=== PATIENT | male | born 1950 | race Caucasian/White ===

== ENCOUNTER → 2018-01-19 | Day surgery (SDC) | payer MEDICARE ==
[~2018-01-19] MED LIST: 0.9 % SODIUM CHLORIDE 10 ML DISP.SYRIN. IV; BENZOCAINE ONE 20% MUCOSAL SPRAY.; BENZOCAINE ONE 20% MUCOSAL SPRAY. MM; IV RINGERS,LACTATED 1000ML 1,000 ML IV; LIDOCAINE 1% PF 2 ML VIAL. ID; LIDOCAINE 2% PF Vial for OR 5 ML VIAL.; LIDOCAINE 2% TOPICAL JELLY 5GM TUBE. TP; LIDOCAINE 2% VISCOUS 15 ML SOLUTION.; LIDOCAINE 2% VISCOUS 15 ML SOLUTION. SWSW; MORPHINE SULFATE 2 MG/ML DISP.SYRIN. IV; ONDANSETRON PF 4 MG/2 ML VIAL. IV; PROCHLORPERAZINE 10 MG/2 ML VIAL. IV; PROPOFOL 20 ML IV; fentaNYL PF VIAL 100 MCG/2 ML VIAL IV
[2018-01-19 12:49] LABS: INR 2.4 (0.8-1.1); PROTHROMBIN TIME PATIENT 24.8 SEC (11.7-14.0)
[2018-01-19 13:00] LABS: ANION GAP 7 (6-14); BLOOD UREA NITROGEN 15 mg/dL (8-26); CALCIUM 8.9 mg/dL (8.5-10.1); CARBON DIOXIDE 27 mmol/L (21-32); CHLORIDE 106 mmol/L (98-107); GLUCOSE 113 mg/dL (70-99); MAGNESIUM 1.9 mg/dL (1.8-2.4); SODIUM 140 mmol/L (136-145)
== END | disposition home or self-care (01) ==
LOC: SURG 11:30
DX: I08.1 Rheumatic disorders of both mitral and tricuspid valves (principal); I37.1 Nonrheumatic pulmonary valve insufficiency; I11.0 Hypertensive heart disease with heart failure; I50.9 Heart failure, unspecified; I25.10 Atherosclerotic heart disease of native coronary artery without angina pectoris; J44.9 Chronic obstructive pulmonary disease, unspecified; K21.9 Gastro-esophageal reflux disease without esophagitis; F41.9 Anxiety disorder, unspecified; F17.200 Nicotine dependence, unspecified, uncomplicated; E03.9 Hypothyroidism, unspecified; Z86.69 Personal history of other diseases of the nervous system and sense organs; Z87.39 Personal history of other diseases of the musculoskeletal system and connective tissue
CPT/HCPCS: 36415; 80048; 83735; 85610; 92960; 93005; 93312; 93325; J2704

== ENCOUNTER 2018-01-21 09:34 | Inpatient (IN) | payer MEDICARE ==
[2018-01-21] MEDS: ALBUTEROL SULFATE 2.5 MG/3 ML NEBU. NEB (10:00)
[2018-01-21] MEDS: IPRATROPIUM BROMIDE 0.5 MG/2.5 ML NEBU. NEB (10:00)
[2018-01-21] MEDS: methylPREDNISolone SOD SUCC PF 125 MG/2 ML VIAL. IV (10:11)
[2018-01-21 10:12] LABS: ADD MAN DIFF? NO
[2018-01-21 10:21] LABS: BASO # 0.1 x10^3/uL (0.0-0.2); BASO % 1 % (0-3); EOS # 0.1 x10^3/uL (0.0-0.7); EOS % 1 % (0-3); HEMATOCRIT 36.2 % (39.0-53.0); LYMPH # 1.7 x10^3/uL (1.0-4.8); LYMPH % 15 % (24-48); MEAN CORPUSCULAR HEMOGLOBIN 30 pg (25-35); MEAN CORPUSCULAR HGB CONC 33 g/dL (31-37); MEAN CORPUSCULAR VOLUME 90 fL (79-100); MONO # 0.8 x10^3/uL (0.0-1.1); MONO % 7 % (0-9); NEUT % 77 % (31-73); PLATELET COUNT 208 x10^3/uL (140-400); RED BLOOD COUNT 4.03 x10^6/uL (4.30-5.70); RED CELL DISTRIBUTION WIDTH 15.8 % (11.5-14.5); WHITE BLOOD COUNT 11.6 x10^3/uL (4.0-11.0)
[2018-01-21 10:29] LABS: ANION GAP 11 (6-14); BLOOD UREA NITROGEN 15 mg/dL (8-26); BUN/CREATININE RATIO 13 (6-20); CALCIUM 9.3 mg/dL (8.5-10.1); CARBON DIOXIDE 25 mmol/L (21-32); CHLORIDE 103 mmol/L (98-107); CREATININE 1.2 mg/dL (0.7-1.3); GFR 60.8; GLUCOSE 138 mg/dL (70-99); SODIUM 139 mmol/L (136-145)
[2018-01-21 10:34] LABS: ALBUMIN 3.8 g/dL (3.4-5.0); ALBUMIN/GLOBULIN RATIO 1.1 (1.0-1.7); ALK PHOS 147 U/L (46-116); ALT (SGPT) 42 U/L (16-63); AST (SGOT) 24 U/L (15-37); TOTAL BILIRUBIN 0.9 mg/dL (0.2-1.0); TOTAL PROTEIN 7.2 g/dL (6.4-8.2)
[2018-01-21 10:35] LABS: INFLUENZA A PATIENT NEGATIVE (NEGATIVE); INFLUENZA B PATIENT NEGATIVE (NEGATIVE); OBC FLU VALID
[2018-01-21 10:38] LABS: TROPONINI < 0.017 ng/mL (0.000-0.055)
[2018-01-21 10:40] LABS: NT-PRO BNP 701 pg/mL (0-124)
[2018-01-21 11:23] LABS: INR 2.7 (0.8-1.1); PROTHROMBIN TIME PATIENT 26.7 SEC (11.7-14.0)
[2018-01-21] MEDS: FUROSEMIDE 40 MG/4 ML VIAL. IVP (11:23)
[2018-01-21] MEDS ORDERED: ONDANSETRON PF 4 MG/2 ML VIAL. IV (11:45)
[2018-01-21] MEDS: IPRATRPIUM/ALBUTEROL 0.5/2.5MG 3 ML NEBU. NEB ×3 (12:15→19:46)
[2018-01-21] MEDS: FUROSEMIDE 20 MG/2 ML VIAL. IVP (13:30)
[2018-01-21] MEDS ORDERED: NITROGLYCERIN SUBLINGUAL 0.4 MG BOTTLE OF 25. SL (17:00)
[2018-01-21] MEDS ORDERED: clonazePAM 1 MG TABLET PO (17:00)
[2018-01-21] MEDS ORDERED: NON FORMULARY ITEM (Ipratropium/Albuterol Sulfate (Combivent Respimat Inhal) 2 INH) IH (17:00)
[2018-01-21] MEDS ORDERED: METHOCARBAMOL 750 MG TABLET PO (17:00)
[2018-01-21] MEDS: WARFARIN 2 MG TABLET. PO (17:20)
[2018-01-21] MEDS: predniSONE 20 MG TABLET PO (17:21)
[2018-01-21 18:24] LABS: TROPONINI < 0.017 ng/mL (0.000-0.055)
[2018-01-21] MEDS: BUDESONIDE 0.5 MG/2 ML NEBU. NEB (19:46)
[2018-01-21] MEDS ORDERED: BUDESONIDE 0.5 MG/2 ML NEBU. NEB (20:00)
[2018-01-21] MEDS: DOXYCYCLINE HYCLATE 100 MG TABLET PO (20:56)
[2018-01-21] MEDS: ATORVASTATIN CALCIUM 40 MG TABLET. PO (20:57)
[2018-01-21] MEDS ORDERED: NON FORMULARY ITEM (Budesonide/Formoterol Fumarate (Symbicort 160-4.5 Mcg Inhaler) 2 PUFF) IH (21:00)
[2018-01-22] MEDS: ACETAMINOPHEN 325 MG TABLET. PO ×2 (03:37→17:11)
[2018-01-22 05:43] LABS: BASO % 0 % (0-3); EOS % 0 % (0-3); HEMATOCRIT 35.9 % (39.0-53.0); HEMOGLOBIN 11.9 g/dL (13.0-17.5); LYMPH % 9 % (24-48); MEAN CORPUSCULAR HEMOGLOBIN 30 pg (25-35); MEAN CORPUSCULAR HGB CONC 33 g/dL (31-37); MEAN CORPUSCULAR VOLUME 90 fL (79-100); MONO # 0.5 x10^3/uL (0.0-1.1); MONO % 4 % (0-9); NEUT # 9.9 x10^3uL (1.8-7.7); NEUT % 87 % (31-73); PLATELET COUNT 220 x10^3/uL (140-400); RED BLOOD COUNT 3.99 x10^6/uL (4.30-5.70); RED CELL DISTRIBUTION WIDTH 16.1 % (11.5-14.5); WHITE BLOOD COUNT 11.3 x10^3/uL (4.0-11.0)
[2018-01-22 05:57] LABS: ADD MAN DIFF? YES
[2018-01-22] MEDS: LEVOTHYROXINE 75 MCG TABLET PO (06:10)
[2018-01-22 06:18] LABS: ALBUMIN 3.7 g/dL (3.4-5.0); ALBUMIN/GLOBULIN RATIO 0.9 (1.0-1.7); ALK PHOS 143 U/L (46-116); ALT (SGPT) 35 U/L (16-63); ANION GAP 12 (6-14); AST (SGOT) 15 U/L (15-37); BLOOD UREA NITROGEN 23 mg/dL (8-26); BUN/CREATININE RATIO 18 (6-20); CALCIUM 9.5 mg/dL (8.5-10.1); CARBON DIOXIDE 25 mmol/L (21-32); CHLORIDE 100 mmol/L (98-107); CREATININE 1.3 mg/dL (0.7-1.3); GFR 55.4; GLUCOSE 159 mg/dL (70-99); POTASSIUM 4.2 mmol/L (3.5-5.1); SODIUM 137 mmol/L (136-145); TOTAL PROTEIN 7.7 g/dL (6.4-8.2)
[2018-01-22 07:16] LABS: INR 2.5 (0.8-1.1); PROTHROMBIN TIME PATIENT 25.1 SEC (11.7-14.0)
[2018-01-22] MEDS: BUDESONIDE 0.5 MG/2 ML NEBU. NEB ×2 (07:17→18:13)
[2018-01-22] MEDS: IPRATRPIUM/ALBUTEROL 0.5/2.5MG 3 ML NEBU. NEB ×3 (07:17→18:12)
[2018-01-22] MEDS: AMIODARONE HCL 200 MG TABLET. PO (08:17)
[2018-01-22] MEDS: FUROSEMIDE 40 MG TABLET. PO (08:17)
[2018-01-22] MEDS: SPIRONOLACTONE 25 MG TABLET PO (08:17)
[2018-01-22] MEDS: predniSONE 20 MG TABLET PO (08:18)
[2018-01-22] MEDS: DOXYCYCLINE HYCLATE 100 MG TABLET PO ×2 (08:18→20:51)
[2018-01-22] MEDS: LOSARTAN POTASSIUM 50 MG TABLET. PO (08:18)
[2018-01-22] MEDS: METOPROLOL SUCC 24HR ER 100 MG TAB.ER.24H. PO (08:18)
[2018-01-22] MEDS: CLOPIDOGREL BISULFATE 75 MG TABLET PO (08:18)
[2018-01-22] MEDS: LACTOBACILLUS RHAMNOSUS GG 1 CAPSULE. PO ×2 (08:20→20:51)
[2018-01-22] MEDS: FUROSEMIDE 20 MG/2 ML VIAL. IVP (08:20)
[2018-01-22 09:08] LABS: % BANDS 3 % (0-9); % LYMPHS 12 % (24-48); % MONOS 5 % (0-10); % SEGS 80 % (35-66); PLT ESTIMATE ADEQUATE (ADEQUATE)
[2018-01-22 09:09] LABS: ANISOCYTOSIS PRESENT; OVALOCYTES PRESENT; POLYCHROMASIA PRESENT
[2018-01-22] MEDS: ALBUTEROL SULFATE 2.5 MG/3 ML NEBU. NEB (15:14)
[2018-01-22] MEDS: WARFARIN 2 MG TABLET. PO (17:11)
[2018-01-22] MEDS: ATORVASTATIN CALCIUM 40 MG TABLET. PO (20:51)
[2018-01-22] MEDS: ZOLPIDEM 5 MG TABLET. PO (20:53)
[2018-01-23] MEDS: ACETAMINOPHEN 325 MG TABLET. PO ×2 (03:18→14:28)
[2018-01-23 04:57] LABS: INR 2.7 (0.8-1.1); PROTHROMBIN TIME PATIENT 26.9 SEC (11.7-14.0)
[2018-01-23] MEDS: LEVOTHYROXINE 75 MCG TABLET PO (06:22)
[2018-01-23] MEDS: BUDESONIDE 0.5 MG/2 ML NEBU. NEB ×2 (07:25→20:10)
[2018-01-23] MEDS: IPRATRPIUM/ALBUTEROL 0.5/2.5MG 3 ML NEBU. NEB ×4 (07:25→20:10)
[2018-01-23] MEDS: FUROSEMIDE 40 MG TABLET. PO (08:25)
[2018-01-23] MEDS: LACTOBACILLUS RHAMNOSUS GG 1 CAPSULE. PO ×2 (08:25→21:13)
[2018-01-23] MEDS: AMIODARONE HCL 200 MG TABLET. PO (08:26)
[2018-01-23] MEDS: CLOPIDOGREL BISULFATE 75 MG TABLET PO (08:26)
[2018-01-23] MEDS: METOPROLOL SUCC 24HR ER 100 MG TAB.ER.24H. PO (08:27)
[2018-01-23] MEDS: LOSARTAN POTASSIUM 50 MG TABLET. PO (08:27)
[2018-01-23] MEDS: DOXYCYCLINE HYCLATE 100 MG TABLET PO ×2 (08:27→21:13)
[2018-01-23] MEDS: SPIRONOLACTONE 25 MG TABLET PO (08:28)
[2018-01-23] MEDS: predniSONE 20 MG TABLET PO (08:28)
[2018-01-23] MEDS: BENZONATATE 100 MG CAPSULE. PO ×2 (13:16→21:13)
[2018-01-23] MEDS: AMOXICILLIN/K CLAV 875/125MG TABLET. PO ×2 (13:16→21:13)
[2018-01-23] MEDS: WARFARIN 2 MG TABLET. PO (16:26)
[2018-01-23] MEDS: ATORVASTATIN CALCIUM 40 MG TABLET. PO (21:13)
[2018-01-23] MEDS: ZOLPIDEM 5 MG TABLET. PO (21:13)
[2018-01-24] MEDS: LEVOTHYROXINE 75 MCG TABLET PO (05:40)
[2018-01-24] MEDS: BUDESONIDE 0.5 MG/2 ML NEBU. NEB (06:50)
[2018-01-24] MEDS: IPRATRPIUM/ALBUTEROL 0.5/2.5MG 3 ML NEBU. NEB ×2 (06:50→11:27)
[2018-01-24 07:21] LABS: INR 2.6 (0.8-1.1)
[2018-01-24] MEDS: BENZONATATE 100 MG CAPSULE. PO (08:24)
[2018-01-24] MEDS: SPIRONOLACTONE 25 MG TABLET PO (08:24)
[2018-01-24] MEDS: AMOXICILLIN/K CLAV 875/125MG TABLET. PO (08:24)
[2018-01-24] MEDS: CLOPIDOGREL BISULFATE 75 MG TABLET PO (08:24)
[2018-01-24] MEDS: LACTOBACILLUS RHAMNOSUS GG 1 CAPSULE. PO (08:24)
[2018-01-24] MEDS: FUROSEMIDE 40 MG TABLET. PO (08:24)
[2018-01-24] MEDS: DOXYCYCLINE HYCLATE 100 MG TABLET PO (08:24)
[2018-01-24] MEDS: AMIODARONE HCL 200 MG TABLET. PO (08:25)
[2018-01-24] MEDS: METOPROLOL SUCC 24HR ER 100 MG TAB.ER.24H. PO (08:25)
[2018-01-24] MEDS: predniSONE 20 MG TABLET PO (08:25)
[2018-01-24] MEDS: LOSARTAN POTASSIUM 50 MG TABLET. PO (08:26)
== END 2018-01-24 12:05 | disposition home or self-care (01) | DRG 177 ==
LOC: ER 09:34 → 2 NORTH 11:30
DX: J69.0 Pneumonitis due to inhalation of food and vomit (principal); J96.01 Acute respiratory failure with hypoxia; I13.0 Hypertensive heart and chronic kidney disease with heart failure and stage 1 through stage 4 chronic kidney disease, or unspecified chronic kidney disease; I50.22 Chronic systolic (congestive) heart failure; J44.0 Chronic obstructive pulmonary disease with (acute) lower respiratory infection; J44.1 Chronic obstructive pulmonary disease with (acute) exacerbation; E03.9 Hypothyroidism, unspecified; E78.5 Hyperlipidemia, unspecified; G47.00 Insomnia, unspecified; I25.10 Atherosclerotic heart disease of native coronary artery without angina pectoris; I25.5 Ischemic cardiomyopathy; I48.91 Unspecified atrial fibrillation; J20.9 Acute bronchitis, unspecified; K21.9 Gastro-esophageal reflux disease without esophagitis; N18.9 Chronic kidney disease, unspecified; Z68.38 Body mass index [BMI] 38.0-38.9, adult; Z79.01 Long term (current) use of anticoagulants; Z82.49 Family history of ischemic heart disease and other diseases of the circulatory system; Z87.891 Personal history of nicotine dependence; Z95.1 Presence of aortocoronary bypass graft; Z95.5 Presence of coronary angioplasty implant and graft; Z95.810 Presence of automatic (implantable) cardiac defibrillator; E66.01 Morbid (severe) obesity due to excess calories; F41.9 Anxiety disorder, unspecified; M54.5 Low back pain
CPT/HCPCS: 36415; 71045; 71250; 80048; 80053; 83735; 83880; 84484; 85007; 85025; 85610; 87040; 87804; 87804-59; 93005; 93312; 93325; 94618; 94640; 94760; 96374; 96375; 99285; 99285-25; J1940; J2930; J7512; J7613; J7620; J7626; J7644

== ENCOUNTER 2018-11-16 10:04 | Outpatient (CLI) | payer MEDICARE ==
[~2018-11-16] VITALS: Ht 175.3 cm; Wt 113.4 kg
[2018-11-16] VITALS (10 sets, daily range): BP systolic 96–173; BP diastolic 65–84
[~2018-11-16 10:04] MED LIST changes: -0.9 % SODIUM CHLORIDE 10 ML DISP.SYRIN. IV; +ACET500T68 PO; +AMIO200T4 PO; +AMOX1TAB61 PO; +ATORVASTATIN CA80 MG PO; -BENZOCAINE ONE 20% MUCOSAL SPRAY.; -BENZOCAINE ONE 20% MUCOSAL SPRAY. MM; +BUDE10.2 IH; +CARV25TA2 PO; +CLON1TAB11 PO; +CLOP75TA PO; +DOXY100T PO; +FURO-68 PO; +FURO20TA3 PO; +GABA300C18 PO; +IPRA0.2S5 NEB; +IPRA4AER IH; -IV RINGERS,LACTATED 1000ML 1,000 ML IV; +LEVO25TA4 PO; +LEVO75TA PO; -LIDOCAINE 1% PF 2 ML VIAL. ID; -LIDOCAINE 2% PF Vial for OR 5 ML VIAL.; -LIDOCAINE 2% TOPICAL JELLY 5GM TUBE. TP; -LIDOCAINE 2% VISCOUS 15 ML SOLUTION.; -LIDOCAINE 2% VISCOUS 15 ML SOLUTION. SWSW; +LOSA-73 PO; +LOSA100T14 PO; +METH4TAB2 PO; +METH750T2 PO; +METO-247 PO; -MORPHINE SULFATE 2 MG/ML DISP.SYRIN. IV; +NITR0.4T22 SL; +NITR1PAT5 TD; -ONDANSETRON PF 4 MG/2 ML VIAL. IV; +OXYC1TAB22 PO; +POTA20TA4 PO; -PROCHLORPERAZINE 10 MG/2 ML VIAL. IV; -PROPOFOL 20 ML IV; +SIMV40TA3 PO; +SPIR25TA5 PO; +WARF2TAB96 PO; +ZOLP5TAB5 PO; -fentaNYL PF VIAL 100 MCG/2 ML VIAL IV
[2018-11-16 10:29] LABS: HEMATOCRIT 40.1 % (39.0-53.0); HEMOGLOBIN 13.9 g/dL (13.0-17.5); RED BLOOD COUNT 4.36 x10^6/uL (4.30-5.70); WHITE BLOOD COUNT 7.7 x10^3/uL (4.0-11.0)
[2018-11-16] MEDS ORDERED: WARF1TAB69 PO (10:31)
[2018-11-16] MEDS ORDERED: IODIXANOL 320 MG/ML 100 ML VIAL. ONE ×2 (10:34→12:00)
[2018-11-16] MEDS ORDERED: LIDOCAINE 1% PF 2 ML VIAL. ONE (10:34)
[2018-11-16 10:44] LABS: PROTHROMBIN TIME PATIENT 16.1 SEC (11.7-14.0)
[2018-11-16 10:47] LABS: CALCIUM 9.1 mg/dL (8.5-10.1); CREATININE 1.3 mg/dL (0.7-1.3); GFR 55.2; POTASSIUM 4.4 mmol/L (3.5-5.1)
[2018-11-16] MEDS ORDERED: NITROGLYCERIN 200 MCG/2 ML SYRINGE FOR CATH/VASC LAB. ONE (11:10)
[2018-11-16] MEDS ORDERED: VERAPAMIL 5 MG/2 ML VIAL. ONE (11:10)
[2018-11-16] MEDS ORDERED: HEPARIN for IV BOLUS 10,000 UNIT/10 ML VIAL. ONE (11:10)
[2018-11-16] MEDS ORDERED: MIDAZOLAM HCL/PF 2 MG/2 ML VIAL. ONE (11:10)
[2018-11-16] MEDS ORDERED: fentaNYL PF VIAL 100 MCG/2 ML VIAL ONE (11:10)
[2018-11-16] MEDS ORDERED: HEPARIN for IV BOLUS 10,000 UNIT/10 ML VIAL. IART ONE (12:00)
[2018-11-16] MEDS ORDERED: fentaNYL PF VIAL 100 MCG/2 ML VIAL IV ONE (12:00)
[2018-11-16] MEDS ORDERED: IODIXANOL 320 MG/ML 100 ML VIAL. IART ONE (12:00)
[2018-11-16] MEDS ORDERED: MIDAZOLAM HCL/PF 2 MG/2 ML VIAL. IV ONE (12:00)
[2018-11-16] MEDS ORDERED: VERAPAMIL 5 MG/2 ML VIAL. IART ONE (12:00)
[2018-11-16] MEDS ORDERED: NITROGLYCERIN 200 MCG/2 ML SYRINGE FOR CATH/VASC LAB. IART ONE (12:00)
[2018-11-16] MEDS ORDERED: LIDOCAINE 1% PF 2 ML VIAL. INJ ONE (12:00)
--- NOTE | 2018-11-20 14:55 | CARD ---
MR#: [id number] Date of Study: 11/16/2018 Ordering Physician: IGNACIA KENNEDY, Referring Physician: IGNACIA KENNEDY, Tech: RT Dick (R) LESLIE APPROVED REPORT Technologist: RT Dick (R) LESLIE Nurse: Gail Segovia R.N. Procedure(s) performed: 49 MINUTES SEDATION [facility], Coronary angiography, Aortography, Bypass angiography HISTORY The patient is a 68 year-old male with a history of : diabetes mellitus with treatment, coronary deshaun ry disease, hypertension, dyslipidemia. INDICATION The indication(s) include : atypical chest pain , dyspnea. PROCEDURE NARRATIVE INFORMED CONSENT: After explaining the risks and benefits of the procedure and alternatives, informed consent was obtained. The patient was brought electively to the cardiac catheterization lab. A timeout was performed confi rming the patient's name, date of , procedure, and site of procedure. All necessary personnel w ere wearing the appropriate protective equipment and radiation monitor devices. (See nursing notes for medications administered). ACCESS: The left wrist was sterilely prepped and draped in the usual fashion. The left wrist was infiltrated with 1 mL of 2% lidocaine for subcutaneous anesthesia. A 6 Finnish Terumo glide sheath was inserted into the left radial artery without difficulty. CORONARY ANGIOGRAPHY: Right and left coronary angiography was performed using a 6Fr JR4 and JL4 catheter. Left ventricula r end diastolic pressure was obtained with a pigtail catheter and pullback was performed. Aortography was performed. Bypass angiography was performed with a JR4 and MORENA catheter. All catheter exchanges and advancements were performed over a guidewire. CLOSURE: At case completion the left radial sheath was removed and a Terumo radial band was applied with 13 ml of air. COMPLICATIONS: The patient tolerated the procedure well and there were no immediate complications. FINDINGS: HEMODYNAMICS: LVEDP 15 mm Hg No gradient on LV to aortic pullback. AO: 128/78 AORTOGRAM: Normal caliber aorta No significant grafts noted except SVG to OM. CORONARY ANGIOGRAPHY: LM is a large caliber vessel with a mid to distal 50-60% stenosis. LAD is a moderate caliber vessel with a proximal 100% occlusion. Ramus is a moderate caliber vessel with an ostial 50% stenosis. The mid and distal vessel as well as the LCx show competitive flow with a SVG. LCx is a moderate caliber co-dominant vessel with a proximal diffuse 50% stenosis. The distal vessel tapers to a smaller caliber and has 40% stenosis. OM1/LPL1 are small caliber vessels with mild luminal irregularities. RCA appears to be a small caliber vessel with a proximal [employer]HW[employer]. The distal vessel is seen to fill via f aint left to right collaterals. BYPASS ANGIOGRAPHY: MORA to LAD - Patent without anastomotic stenosis. SVG to ramus - Patent without anastomotic stenosis. Conclusion 1. Normal left sided filling pressures. 2. Three vessel coronary disease. 3. 2/2 grafts patent. Recommendations 1. Reviewed cath films from 2015 at [facility], no significant changes. No clear explantion for new onset d yspnea. Consider pulmonary evaluation. Signed by : Ignacia Kennedy, Electronically Approved : 11/20/2018 14:53:52
== END 2018-11-16 14:50 | disposition home or self-care (01) ==
LOC: CCL 10:04
PROVIDERS: ATTEND Internal Medicine Cardiovascular Disease
DX: I25.10 Atherosclerotic heart disease of native coronary artery without angina pectoris (principal); I10 Essential (primary) hypertension; E78.5 Hyperlipidemia, unspecified; E11.9 Type 2 diabetes mellitus without complications; Z79.899 Other long term (current) drug therapy; Z79.84 Long term (current) use of oral hypoglycemic drugs
CPT/HCPCS: 36415; 80048; 85027; 85610; 93459; 93567; 99152; 99153; C1769; C1892; J1644; J2250; J3010; J3490; Q9967

== ENCOUNTER → 2018-12-15 | Day surgery (SDC) | payer MEDICARE, OTHER ==
[~2018-12-15] MED LIST changes: +HYDROmorphone 2 MG/ML VIAL IV PRN; +IV RINGERS,LACTATED 1000ML 1,000 ML IV SCH; +LIDOCAINE 1% PF 2 ML VIAL. ID PRN; +LIDOCAINE 1% PF 2 ML VIAL. ONE; +MORPHINE SULFATE 2 MG/ML VIAL. IV PRN; +ONDANSETRON PF 4 MG/2 ML VIAL. IV PRN; +PROCHLORPERAZINE 10 MG/2 ML VIAL. IV PRN; +PROPOFOL 60 ML IV ONE; +WARF1TAB69 PO; +fentaNYL PF VIAL 100 MCG/2 ML VIAL IV PRN
--- NOTE | 2018-12-15 12:53 | PDOC1 ---
History and Physical Date of Admission Date of Admission DATE: 12/15/18 TIME: 12:48 Identification/Chief Complaint Chief Complaint screening colonoscopy, atypical chest pain History of Present Illness History of Present Illness 68 yo male with CHF, CAD and prior hx of colon polyp- with some atypical chest pain as well. Seen recently by cardiology at [place]. Referred for EGD and colonoscopy Past Medical History Cardiovascular: AFIB, CAD, CHF, HTN, Hyperlipidemia Pulmonary: COPD, Pneumonia, Other CENTRAL NERVOUS SYSTEM: Other GI: GERD Heme/Onc: Anemia NOS Psych: Anxiety Musculoskeletal: low back pain Rheumatologic: No pertinent hx Infectious disease: No pertinent hx Renal/: Chronic renal insuff Endocrine: Hypothyroidism Past Surgical History Past Surgical History: Pacemaker, CABG, Other Family History Family History: Heart Disease, Hypertension Social History ALCOHOL: none Drugs: None Current Medications Current Medications Current Medications Ondansetron HCl (Zofran) 4 mg PRN Q6HRS PRN IV NAUSEA/VOMITING; Start 12/15/18 at 07:00; Stop 12/16/18 at 06:59 Fentanyl Citrate (Fentanyl 2ml Vial) 25 mcg PRN Q5MIN PRN IV MILD PAIN; Start 12/15/18 at 07:00; Stop 12/16/18 at 06:59 Fentanyl Citrate (Fentanyl 2ml Vial) 50 mcg PRN Q5MIN PRN IV MODERATE TO SEVERE PAIN; Start 12/15/18 at 07:00; Stop 12/16/18 at 06:59 Morphine Sulfate (Morphine Sulfate) 1 mg PRN Q10MIN PRN IV SEVERE PAIN; Start 12/15/18 at 07:00; Stop 12/16/18 at 06:59 Ringer's Solution 1,000 ml @ 30 mls/hr Q24H IV ; Start 12/15/18 at 07:00; Stop 12/15/18 at 18:59 Lidocaine HCl (Xylocaine-Mpf 1% 2ml Vial) 2 ml PRN 1X PRN ID IV START; Start at 07:00; Stop 12/16/18 at 06:59 Hydromorphone HCl (Dilaudid) 0.5 mg PRN Q10MIN PRN IV SEV PAIN, Second choice; Start 12/15/18 at 07:00; Stop 12/16/18 at 06:59 Prochlorperazine Edisylate (Compazine) 5 mg PACU PRN PRN IV NAUSEA, MRX1; Start 12/15/18 at 07:00; Stop 12/16/18 at 06:59 Active Scripts Active Synthroid (Levothyroxine Sodium) 75 Mcg Tablet 75 Mcg PO DAILY07 30 Days Amiodarone Hcl 200 Mg Tablet 200 Mg PO DAILY 30 Days Cozaar (Losartan Potassium) 50 Mg Tablet 100 Mg PO DAILY 30 Days Lasix (Furosemide) 40 Mg Tablet 1 Tab PO DAILY Reported Warfarin Sodium 1 Mg Tablet 1 Mg PO UD takes on Tuesday and Tuesday Metoprolol Succinate ( Xl ) (Metoprolol Succinate) 100 Mg Tab.er.24h 100 Mg PO DAILY Atorvastatin Calcium 80 Mg Tablet 80 Mg PO HS NITROGLYCERIN SubLingual (Nitroglycerin) 0.4 Mg Tab.subl 0.4 Mg SL PRN Q5MIN PRN Combivent Respimat Inhal (Ipratropium/Albuterol Sulfate) 4 Gm Aer.w.adap 2 Inh IH BID Acetaminophen 500 Mg Tablet 2 Tab PO PRN Q6-8HRS PRN Symbicort 160-4.5 Mcg Inhaler (Budesonide/Formoterol Fumarate) 10.2 Gm Hfa.aer.ad 2 Puff IH BID Spironolactone 25 Mg Tablet 1 Tab PO DAILY Clonazepam 1 Mg Tablet 1 Tab PO Q6HRS PRN Methocarbamol 750 Mg Tablet 750 Mg PO Q6HRS PRN Clopidogrel (Clopidogrel Bisulfate) 75 Mg Tablet 1 Tab PO DAILY Warfarin Sodium 2 Mg Tablet 1 Tab PO DAILY Allergies Allergies: Coded Allergies: No Known Drug Allergies (Unverified , 02/29/16) Physical Exam General: Alert, Oriented X3 Lungs: Clear to auscultation Abdomen: Normal bowel sounds, Soft, No tenderness Vitals Vitals Vital Signs Date Time Temp Pulse Resp B/P (MAP) Pulse Ox O2 Delivery O2 Flow Rate FiO2 12/15/18 12:34 97.9 69 20 97 97.9 VTE Prophylaxis Ordered VTE Prophylaxis Devices: Contraindicated VTE Pharmacological Prophylaxi: Contraindicated (on coumadin) Assessment/Plan Assessment/Plan Here for screening colonoscopy and EGD for atypical chest pain SAEED RANDALL MD Dec 15, 2018 12:53
--- NOTE | 2018-12-15 13:42 | PDOC4 ---
PROCEDURE Procedure Screening colon EGD for atypical chest pain Sedation with anesthesia Findings EGD- white plaque in esophagus ? fungal o/w normal- bx Colonoscopy- polyp 6 mm in transverse- cold snare removed. Min bleeding; two sessile small polyps in sigmoid- bx removed. Restart coumadin tomorrow call office for bx results in 10 days SAEED RANDALL MD Dec 15, 2018 13:42
[2018-12-15 14:01] VITALS: BP 100/65
--- NOTE | 2018-12-19 09:09 | PATHOLOGY ---
[facility] Accession Number: [id number] . 01 Material submitted: . PART A: DISTAL AND MID ESOPHAGUS BIOPSY PART B: TRANSVERSE COLON POLYP PART C: SIGMOID COLON BIOPSY/POLYP . 01 Clinical history: . CP, screening . 02 Diagnosis: A. Esophageal biopsies, distal and mid esophagus: - Segments of hyperplastic squamous esophageal mucosa with focal intraepithelial neutrophils and yeast / pseudohyphae, consistent with Yasmeen esophagitis. . B. Colon biopsy, transverse colon polyp: - Tubular adenoma. . C. Colon biopsies, sigmoid colon / polyp: - Hyperplastic polyp. . (JPM:mml; 12/18/2018) [facility]/12/18/2018 . 02 Comment: Sections of the distal and middle esophageal biopsy reveal segments of tangentially-oriented hyperplastic squamous esophageal mucosa showing focal intraepithelial neutrophils. A PAS stain for yeast / fungi reveals focal yeast and pseudohyphae. The findings are consistent with Yasmeen esophagitis. There is no evidence of Cohen's change, dysplasia, or malignancy. . Sections of the transverse colon biopsy reveal a tubular adenoma showing no high grade dysplasia or evidence of malignancy. . Sections of the sigmoid colon biopsy reveal a hyperplastic polyp. . Special stain performed (A1): PAS stain for yeast / fungus. . (JPM:mml; 12/18/2018) . 02 Electronically signed: . Jadiel Rodriges MD, Pathologist NPI- [id number] . 01 Gross description: . A. Received in formalin labeled "Isaac Gibson, distal and mid esophagus BX," are 2 segments of meza soft tissue measuring 1.0 x 0.2 x 0.2 cm in aggregate dimensions and ranging from 0.4 to 0.6 cm in maximum dimension. The specimen is submitted entirely in cassette A1. . B. Received in formalin labeled "Isaac Gibson, transverse colon polyp," is a single segment of meza soft tissue measuring 0.5 cm in maximum dimension. The specimen is entirely submitted in cassette B1. . C. Received in formalin labeled "Isaac Gibson, sigmoid colon BX/polyp," are 3 segments of meza soft tissue measuring 0.5 x 0.4 x 0.2 cm in aggregate dimensions and ranging from 0.3 to 0.4 cm in maximum dimension. The specimen is submitted entirely in cassette C1. (TSD; 12/15/2018) TOB/TOB . 02 Pathologist provided ICD-10: B37.81, D12.3, K63.5 . 02 CPT . 909475, 837117, 965392, 100755 Specimen Comment: A courtesy copy of this report has been sent to Specimen Comment: [phone], . Specimen Comment: Report sent to and Specimen Comment: A duplicate report has been generated due to demographic updates. Performed at: 01 [facility] [address], [place] [id number] MD Dale Villafuerte MD Phone: [phone] Performed at: [address] [facility] [address], [place] [id number] MD Jadiel Rodriges MD Phone: [phone]
== END | disposition home or self-care (01) ==
LOC: SURG 11:54
PROVIDERS: ATTEND Internal Medicine Gastroenterology
DX: Z12.11 Encounter for screening for malignant neoplasm of colon (principal); D12.3 Benign neoplasm of transverse colon; K63.5 Polyp of colon; K20.9 Esophagitis, unspecified; I25.119 Atherosclerotic heart disease of native coronary artery with unspecified angina pectoris; I48.91 Unspecified atrial fibrillation; E78.5 Hyperlipidemia, unspecified; K21.9 Gastro-esophageal reflux disease without esophagitis; J44.9 Chronic obstructive pulmonary disease, unspecified; Z87.01 Personal history of pneumonia (recurrent); D64.9 Anemia, unspecified; F41.9 Anxiety disorder, unspecified; E03.9 Hypothyroidism, unspecified; Z95.1 Presence of aortocoronary bypass graft; Z82.49 Family history of ischemic heart disease and other diseases of the circulatory system; Z79.899 Other long term (current) drug therapy; G47.33 Obstructive sleep apnea (adult) (pediatric); Z95.810 Presence of automatic (implantable) cardiac defibrillator; I25.2 Old myocardial infarction; I13.0 Hypertensive heart and chronic kidney disease with heart failure and stage 1 through stage 4 chronic kidney disease, or unspecified chronic kidney disease; E11.22 Type 2 diabetes mellitus with diabetic chronic kidney disease; N18.2 Chronic kidney disease, stage 2 (mild); I50.9 Heart failure, unspecified; F43.10 Post-traumatic stress disorder, unspecified; Z79.01 Long term (current) use of anticoagulants; Z98.42 Cataract extraction status, left eye; Z98.41 Cataract extraction status, right eye; Z96.1 Presence of intraocular lens; Z79.84 Long term (current) use of oral hypoglycemic drugs
CPT/HCPCS: 43239; 45380; 45385; 88305; J2704

== ENCOUNTER 2019-02-04 12:23 | Emergency (ER) | payer OTHER ==
[~2019-02-04] VITALS: Ht 12.7 cm; Wt 4.5 kg
[~2019-02-04 12:23] MED LIST changes: -HYDROmorphone 2 MG/ML VIAL IV PRN; -IV RINGERS,LACTATED 1000ML 1,000 ML IV SCH; -LIDOCAINE 1% PF 2 ML VIAL. ID PRN; -LIDOCAINE 1% PF 2 ML VIAL. ONE; -MORPHINE SULFATE 2 MG/ML VIAL. IV PRN; -ONDANSETRON PF 4 MG/2 ML VIAL. IV PRN; -PROCHLORPERAZINE 10 MG/2 ML VIAL. IV PRN; -PROPOFOL 60 ML IV ONE; -fentaNYL PF VIAL 100 MCG/2 ML VIAL IV PRN
[2019-02-04 12:43] VITALS: BP 133/83
[2019-02-04] MEDS ORDERED: HYDROcodone/APAP 5/325MG 1 TAB TABLET PO ONE (13:30)
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
[2019-02-04] MEDS ORDERED: LIDOCAINE (700MG/PATCH) PATCH. TD SCH (14:00)
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
== END 2019-02-04 14:58 | disposition home or self-care (01) ==
LOC: ER 12:23
DX: S16.1XXA Strain of muscle, fascia and tendon at neck level, initial encounter (principal); I48.91 Unspecified atrial fibrillation; I25.10 Atherosclerotic heart disease of native coronary artery without angina pectoris; J44.9 Chronic obstructive pulmonary disease, unspecified; I10 Essential (primary) hypertension; E03.9 Hypothyroidism, unspecified; I25.2 Old myocardial infarction; Z95.1 Presence of aortocoronary bypass graft; Z95.0 Presence of cardiac pacemaker; V43.52XA Car driver injured in collision with other type car in traffic accident, initial encounter; Y93.89 Activity, other specified; Y92.410 Unspecified street and highway as the place of occurrence of the external cause; Y99.8 Other external cause status
CPT/HCPCS: 71046; 72125; 99284-25